=== PATIENT | male | born 1970 | race African-American/Black ===

== ENCOUNTER 2024-01-13 05:10 | Emergency (ER) | payer MEDICAID ==
[~2024-01-13] VITALS: Ht 182.9 cm; Wt 109.0 kg
[2024-01-13 05:34] VITALS: TEMP 98.9; O2SAT 100
[2024-01-13 05:49] LABS: HEMATOCRIT. 48.7 % (42.0-52.0); MEAN CORPUSCULAR HEMOGLOBIN 26.8 pg (28.0-32.0); MEAN CORPUSCULAR HGB CONC 32.9 g/dL (31.0-37.0); MEAN CORPUSCULAR VOLUME 81.3 fL (80.0-94.0); MEAN PLATELET VOLUME 9.6 fl (7.4-10.4); PLATELET 199 x1000/uL (130-400); RED CELL DISTRIBUTION WIDTH 15.2 % (11.6-14.6); WHITE BLOOD COUNT 6.2 x1000/uL (4.5-11.0)
[2024-01-13 05:58] LABS: CHLORIDE 109 mEq/L (98-107); POTASSIUM 3.6 mEq/L (3.5-5.1); SODIUM 138 mEq/L (136-145)
[2024-01-13 05:59] LABS: CALCIUM 9.6 mg/dL (8.7-10.4); CARBON DIOXIDE 19 mEq/L (21-32)
[2024-01-13 06:01] LABS: CLARITY URINE CLOUDY (CLEAR); COLOR URINE DARK YELLOW (YELLOW); GLUCOSE URINE NEGATIVE (NEGATIVE); KETONES URINE TRACE (NEGATIVE); LEUKOCYTE ESTERASE URINE NEGATIVE (NEGATIVE); NITRITE URINE NEGATIVE (NEGATIVE); OCCULT BLOOD URINE 1+ (NEGATIVE); PROTEIN URINE 2+ (NEGATIVE); SPECIFIC GRAVITY URINE 1.034 (1.005-1.030)
[2024-01-13 06:04] LABS: CREATININE 1.4 mg/dL (0.6-1.3); GLUCOSE 99 mg/dL (70-105); UREA NITROGEN BLOOD 12 mg/dL (9-23)
[2024-01-13 06:05] LABS: TROPONIN I HIGH SENSITIVITY 4 ng/L (3.0-53)
[2024-01-13 06:06] LABS: ALANINE AMINOTRANSFERASE 14 IU/L (10-49); ASPARTATE AMINOTRANSFERASE 18 IU/L (<34); BILIRUBIN DIRECT 0.1 mg/dL (<=3.0); BILIRUBIN TOTAL 0.3 mg/dL (0.1-1.0); DIFFERENTIAL COMMENT 1
[2024-01-13 06:07] LABS: PROTEIN TOTAL 8.1 g/dL (6.0-8.3)
[2024-01-13 06:34] VITALS: BP 127/62; PULSE 98; RESP 18
[2024-01-13 06:43] LABS: RBC URINE 0-2 /hpf (0-2); WBC URINE 0-2 /hpf (0-2)
[2024-01-13 06:49] LABS: BACTERIA URINE NONE SEEN; SQUAMOUS EPITHELIAL CELL URINE NONE SEEN /lpf (RARE/1+)
[2024-01-13 06:50] LABS: AMORPHOUS SEDIMENT URINE 1+ /lpf
[2024-01-13 07:14] LABS: PLATELET ESTIMATE NORMAL
[2024-01-13] MEDS ORDERED: ELEC-8 MT (19:58)
[2024-01-13] MEDS ORDERED: IMOD MT (19:58)
== END 2024-01-13 06:57 | disposition left against medical advice (07) ==
LOC: ER 05:10
DX: R19.7 Diarrhea, unspecified (principal); I49.9 Cardiac arrhythmia, unspecified; Z53.21 Procedure and treatment not carried out due to patient leaving prior to being seen by health care provider
CPT/HCPCS: 36415; 80048; 80076; 81003; 84484; 85025; 93005

== ENCOUNTER 2024-01-13 19:19 | Emergency (ER) | payer MEDICAID ==
[~2024-01-13] VITALS: Ht 188 cm; Wt 107.0 kg
[2024-01-13 19:30] VITALS: TEMP 98.6; O2SAT 99
[2024-01-13 19:52] LABS: CLARITY URINE CLEAR (CLEAR); COLOR URINE YELLOW (YELLOW); GLUCOSE URINE NEGATIVE (NEGATIVE); KETONES URINE NEGATIVE (NEGATIVE); LEUKOCYTE ESTERASE URINE NEGATIVE (NEGATIVE); NITRITE URINE NEGATIVE (NEGATIVE); OCCULT BLOOD URINE 1+ (NEGATIVE); PH URINE 5.5 (4.5-8.0); PROTEIN URINE 1+ (NEGATIVE); SPECIFIC GRAVITY URINE 1.022 (1.005-1.030); UROBILINOGEN URINE 0.2 E.U./dL (0.2-1.0)
[2024-01-13] MEDS ORDERED: ELEC-8 MT (19:58)
[2024-01-13] MEDS ORDERED: IMOD MT (19:58)
[2024-01-13 20:09] VITALS: BP 127/92; PULSE 95; RESP 18
[2024-01-13] MEDS: LOPERAMIDE 2MG/15ML UDC PO ONE (20:09)
[2024-01-13 20:12] LABS: BACTERIA URINE 1+
[2024-01-13 20:14] LABS: SQUAMOUS EPITHELIAL CELL URINE RARE /lpf (RARE/1+); WBC URINE 0-2 /hpf (0-2)
== END 2024-01-13 20:10 | disposition home or self-care (01) ==
LOC: ER 19:19
DX: R19.7 Diarrhea, unspecified (principal)
CPT/HCPCS: 81003; 93005; 99284

== ENCOUNTER 2024-01-18 12:18 | Emergency (ER) | payer MEDICAID ==
[~2024-01-18] VITALS: Ht 182.9 cm; Wt 108.0 kg
[~2024-01-18 12:18] MED LIST: ELEC-8 MT; IMOD MT
[2024-01-18 13:02] VITALS: O2SAT 100
[2024-01-18 13:20] LABS: BASOPHILS % 0.4 % (0.0-2.0); HEMOGLOBIN. 14.4 g/dL (14.0-18.0); LYMPHOCYTES % 39.8 % (20.0-50.0); MEAN CORPUSCULAR HEMOGLOBIN 26.6 pg (28.0-32.0); MEAN CORPUSCULAR HGB CONC 32.7 g/dL (31.0-37.0); MEAN CORPUSCULAR VOLUME 81.4 fL (80.0-94.0); MONOCYTES % 9.9 % (2.0-8.0); NEUTROPHILS % 46.9 % (40.0-76.0); PLATELET 235 x1000/uL (130-400); RED BLOOD CELL COUNT 5.41 mill/uL (4.7-6.1); RED CELL DISTRIBUTION WIDTH 14.6 % (11.6-14.6); WHITE BLOOD COUNT 7.1 x1000/uL (4.5-11.0)
[2024-01-18 13:24] LABS: CHLORIDE 108 mEq/L (98-107); POTASSIUM 3.4 mEq/L (3.5-5.1); SODIUM 140 mEq/L (136-145)
[2024-01-18 13:25] LABS: CALCIUM 9.2 mg/dL (8.7-10.4); CARBON DIOXIDE 26 mEq/L (21-32)
[2024-01-18 13:30] LABS: CREATININE 1.1 mg/dL (0.6-1.3); GLUCOSE 106 mg/dL (70-105); UREA NITROGEN BLOOD 10 mg/dL (9-23)
[2024-01-18] MEDS ORDERED: AZIT500T8 MT (13:38)
[2024-01-18] MEDS ORDERED: ELEC-8 MT (13:54)
[2024-01-18 13:59] VITALS: BP 122/77; PULSE 70; RESP 18; TEMP 98.2
== END 2024-01-18 14:02 | disposition home or self-care (01) ==
LOC: ER 12:18
DX: R19.7 Diarrhea, unspecified (principal)
CPT/HCPCS: 36415; 80048; 85025; 99283

== ENCOUNTER 2024-07-15 08:08 | Emergency (ER) | payer MEDICAID, OTHER ==
[~2024-07-15] VITALS: Ht 182.9 cm; Wt 108.0 kg
[~2024-07-15 08:08] MED LIST changes: +AZIT500T8 MT
[2024-07-15 08:15] VITALS: TEMP 98.6; O2SAT 100
[2024-07-15 08:16] VITALS: BP 172/112; PULSE 100; RESP 16; O2SAT 100
[2024-07-15 08:56] LABS: CHLORIDE 109 mEq/L (98-107); POTASSIUM 3.9 mEq/L (3.5-5.1); SODIUM 140 mEq/L (136-145)
[2024-07-15 08:57] LABS: CALCIUM 9.5 mg/dL (8.7-10.4); CARBON DIOXIDE 27 mEq/L (21-32)
[2024-07-15 08:58] LABS: BASOPHILS % 0.9 % (0.0-2.0); EOSINOPHILS % 3.6 % (0.0-5.0); HEMOGLOBIN. 14.8 g/dL (14.0-18.0); LYMPHOCYTES % 44.2 % (20.0-50.0); MEAN CORPUSCULAR HEMOGLOBIN 26.6 pg (28.0-32.0); MEAN CORPUSCULAR HGB CONC 32.8 g/dL (31.0-37.0); MEAN CORPUSCULAR VOLUME 80.9 fL (80.0-94.0); MEAN PLATELET VOLUME 10.1 fl (7.4-10.4); MONOCYTES % 9.2 % (2.0-8.0); NEUTROPHILS % 42.1 % (40.0-76.0); PLATELET 184 x1000/uL (130-400); RED BLOOD CELL COUNT 5.56 mill/uL (4.7-6.1); RED CELL DISTRIBUTION WIDTH 14.5 % (11.6-14.6); WHITE BLOOD COUNT 6.1 x1000/uL (4.5-11.0)
[2024-07-15 09:02] LABS: CREATININE 1.1 mg/dL (0.6-1.3); GLUCOSE 99 mg/dL (70-105); UREA NITROGEN BLOOD 13 mg/dL (9-23)
[2024-07-15 09:16] LABS: TROPONIN I HIGH SENSITIVITY < 4 ng/L (3.0-53)
[2024-07-15] MEDS ORDERED: METR-167 MT ×2 (09:33→09:35)
[2024-07-15] MEDS ORDERED: AMLO5TAB88 MT (09:33)
[2024-07-15 10:30] LABS: CLARITY URINE CLEAR (CLEAR); COLOR URINE YELLOW (YELLOW); GLUCOSE URINE NEGATIVE (NEGATIVE); KETONES URINE NEGATIVE (NEGATIVE); LEUKOCYTE ESTERASE URINE NEGATIVE (NEGATIVE); NITRITE URINE NEGATIVE (NEGATIVE); OCCULT BLOOD URINE NEGATIVE (NEGATIVE); PH URINE 5.5 (4.5-8.0); PROTEIN URINE NEGATIVE (NEGATIVE); SPECIFIC GRAVITY URINE 1.023 (1.005-1.030); UROBILINOGEN URINE 0.2 E.U./dL (0.2-1.0)
[2024-07-18 04:10] LABS: CHLAMYDIA TRACHOMATIS NAA Negative (Negative); NEISSERIA GONORRHOEAE NAA Negative (Negative)
== END 2024-07-15 10:47 | disposition home or self-care (01) ==
LOC: ER 08:40
DX: I10 Essential (primary) hypertension (principal); R07.89 Other chest pain; Z11.3 Encounter for screening for infections with a predominantly sexual mode of transmission
CPT/HCPCS: 36415; 80048; 81003; 84484; 85025; 87491; 87591; 93005; 99284